=== PATIENT | female | born 1970 | race Caucasian/White ===

== ENCOUNTER 2023-06-17 08:19 | Day surgery (SDC) | payer OTHER ==
[~2023-06-17] VITALS: Ht 167.6 cm; Wt 98.9 kg
[2023-06-17] MEDS ORDERED: fentaNYL citrate 0.05 MG/ML VIAL ONE (09:13)
[2023-06-17] MEDS ORDERED: diphenhydrAMINE 50 MG/ML VIAL ONE (09:13)
[2023-06-17] MEDS ORDERED: LIDOCAINE 2% 100 MG/5 ML UJET TP ONE (09:14)
[2023-06-17] MEDS ORDERED: MIDAZOLAM 2 MG/2 ML VIAL ONE (09:14)
[2023-06-17] MEDS ORDERED: fentaNYL citrate 0.05 MG/ML VIAL IVP ONE (12:00)
[2023-06-17] MEDS ORDERED: MIDAZOLAM 2 MG/2 ML VIAL IVP ONE (12:00)
== END 2023-06-17 10:00 | disposition home or self-care (01) ==
LOC: MOR 08:19 → MMU 08:20 → MOR 10:00
PROVIDERS: ATTEND Internal Medicine Gastroenterology
DX: Z12.11 Encounter for screening for malignant neoplasm of colon (principal); K64.8 Other hemorrhoids; K57.30 Diverticulosis of large intestine without perforation or abscess without bleeding; E03.9 Hypothyroidism, unspecified; Z80.41 Family history of malignant neoplasm of ovary; Z79.899 Other long term (current) drug therapy
CPT/HCPCS: 45378; J2250; J3010; J1200